=== PATIENT | male | born 1955 | race Caucasian/White ===

== ENCOUNTER 2021-06-09 13:04 | Outpatient (CLI) | payer MEDICARE | END 2021-06-09 23:59 | disposition home or self-care (01) | LOC: CFH 13:04 | PROVIDERS: ATTEND Internal Medicine Cardiovascular Disease | DX: I08.0 Rheumatic disorders of both mitral and aortic valves (principal); I11.9 Hypertensive heart disease without heart failure; Z95.0 Presence of cardiac pacemaker | CPT/HCPCS: 93306; 93356 ==